=== PATIENT | male | born 1940 | race Caucasian/White ===

== ENCOUNTER 2017-02-16 14:31 | Day surgery (SDC) | payer MEDICARE ==
--- NOTE | ~2017-02-16 | OP ---
Record Of Operation [place] [id number] [facility] [place]. [address] NAME: LYNSEY CRAIG : 40 [place] [facility] [place] [id number] AGE: 76 ADM/REG DATE : 02/20/17 MR#: [id number] REPORT SERV DATE: 02/20/17 DICTATED BY: MAURILIO VINSON DATE: 02/20/17 REPORT STATUS : Draft TRANSCRIBED BY: MODL DATE: 02/20/17 DATE OF PROCEDURE: 02/20/2017 PREOPERATIVE DIAGNOSES: 1. Bilateral large incarcerated indirect right inguinal hernias. 2. Incarcerated umbilical hernia. 3. Hypertension. 4. History of nicotine dependence in the past. POSTOPERATIVE DIAGNOSES: 1. Bilateral large incarcerated indirect right inguinal hernias. 2. Incarcerated umbilical hernia. 3. Hypertension. 4. History of nicotine dependence in the past. PROCEDURES: 1. Robotic incarcerated indirect bilateral inguinal hernias with mesh. 2. Primary incarcerated umbilical hernia repair with a separate incision. ANESTHESIA: General. SURGEON: Maurilio Vinson M.D. STAFF SCIENTIST: Rick. COMPLICATIONS: None. DRAINS: None. ESTIMATED BLOOD LOSS: 20 mL. FINDINGS: 1. The patient was noted to have a large incarcerated indirect inguinal hernias with a large amount of incarcerated preperitoneal fat. 2. The patient was noted to have some inflammation of the omentum to the left lower quadrant that was reduced along with the umbilical hernia laparoscopically to allow robotic bilateral inguinal hernia repair. OPERATIVE TECHNIQUE: The patient was brought to the operating room, placed on the table in supine position. He had preoperative IV antibiotics. He had a preoperative TAP block per Anesthesia. He underwent general endotracheal anesthesia and was prepped and draped in sterile fashion and time-out was completed. Local anesthesia was instilled to the supraumbilical skin and a 15 blade knife was used to make an incision. Veress needle was inserted and water drop test was safely performed. The 12 mm trocar was inserted through the abdomen in the supraumbilical midline and the laparoscope was inserted. There was a small amount of incarcerated preperitoneal fat in the umbilical hernia. Two 5 mm lateral Record Of [place] [id number] [facility] [place]. [address] NAME: LYNSEY CRAIG : 40 [place]US : [place] [facility] [place] PAT#: [id number] AGE: 76 ADM/REG DATE : 02/20/17 MR#: [id number] REPORT SERV DATE: 02/20/17 DICTATED BY: MAURILIO VINSON DATE: 02/20/17 REPORT STATUS : Draft TRANSCRIBED BY: PEDRO DATE: 02/20/17 trocars were placed transversely parallel to the initial trocar under direct visualization. They were robotic 8 mm trocars. They were positioned with the black line for center point. The patient was then placed in Trendelenburg and the laparoscope was then used to take down the omentum that was incarcerated in the hernia sac using electrocautery. It was completely reduced and examined, it was noted to be hemostatic. There was a minimal amount of free fluid in the pelvis with some inflammation of the omentum in the left lower quadrant like the patient had some previous inflammatory process. This was taken down to allow complete hernia repair on the left. The patient was noted to have indirect inguinal hernias that were visible on both sides. The procedure then began on the right. The peritoneum was divided above the anterior iliac spine and extended toward the median umbilical ligament. Blunt dissection then ensued inferiorly from the median umbilical ligament until Newton ligament was clearly identified. Blunt dissection was used to identify the direct space, and dissection extended 2 cm below Newton ligament. The entire direct space was identified. Care was taken not involve the inferior epigastric vessels throughout the procedure. The indirect inguinal hernia sac was then identified and carefully bluntly dissected along with a large lipoma of the cord that was incarcerated. The dissection continued laterally until iliopubic tract and transversus arch were identified. The entire peritoneum was then reduced well proximal to where the vas joined the neurovascular structures of the cord, which were identified and preserved throughout the procedure. Of note, after the initial laparoscopic trocar and instruments were inserted, the ProGrip mesh which had been previously folded and irrigated with suture inside were placed on both sides for future placement. After the robot was docked, the procedure continued as described. The entire hernia and peritoneum was then reduced and there was no evidence of any other visual abnormalities. The ProGrip was then positioned just past the midline with the middle of the ProGrip at the iliopubic tract and then positioned in the pelvic floor. A small incision was made on top of the cord structures on the mesh to allow better reapproximation to the lateral structures. There was no evidence of any other defects and at this point the peritoneum was reapproximated using a running V-Loc suture without tension after the pneumoperitoneum was reduced to 7. Next, attention was turned to the left side. The peritoneum was scored and the entire hernia was repaired as described for the right. The mesh was placed as described for the right as well. The two medial portions of the mesh were overlapping. Of note, the mesh was approximately 2 cm below Newton ligament mainly on both sides and the entire myopectineal space was covered with mesh. The left peritoneum was then reapproximated with V-Loc suture without tension with the pneumoperitoneum at 4. There was no evidence of any other visual abnormalities, and all the instruments and trocars were removed. The anterior fascia was reapproximated at the superior trocar site with a running 0 Vicryl suture. The skin edges were reapproximated using interrupted subcuticular Monocryl sutures. The patient then had an infraumbilical incision made at the umbilicus and the indirect inguinal hernia sac was then identified using electrocautery, and circumferentially dissected. It was excised from the abdominal wall, flushed with the fascia. A 2 cm defect was identified. It was closed primarily without tension, and then the wound was thoroughly irrigated. The subcutaneous tissues were reapproximated using a 3-0 Vicryl suture followed by a running Monocryl stitch. Dermabond was applied. The patient was extubated and taken to the recovery room in stable condition. All sponge and needle counts were reported correct. Record Of Operation [address] [address] NAME: LYNSEY CRAIG Keely : 40 [place] [facility] [place] PAT#: [id number] AGE: 76 ADM/REG DATE : 02/20/17 MR#: [id number] REPORT SERV DATE: 02/20/17 DICTATED BY: MAURILIO VINSON DATE: 02/20/17 REPORT STATUS : Draft TRANSCRIBED BY: PEDRO DATE: 02/20/17 /PEDRO Maurilio Vinson M.D. / [id number] CC: Kala Leon M.D. Gary Smith, M.D.
[~2017-02-16 14:31] MED LIST: AMB10 PO; ASA5GR PO; BENICAR HCT1 TA1 PO; CYMBALTA60 PO; GARLIC PO; GOODY'S EX-STR1 EAC1 PO; LORTAB 5 PO; LYRICA75 PO; MULTIPLE VIT PO; NASAL MOIST0.65 % NAS; SAW PALMETTO PO; SINUS NAS; T PO; TRILIPIX135 MG PO; VIT COMPLEX PO; Z100 PO
[2017-02-16 15:11] LABS: HEMATOCRIT 43.5 % (40.0-51.0); HEMOGLOBIN 14.4 g/dL (13.6-17.8)
[2017-02-16 15:23] LABS: BUN (BLOOD UREA NITROGEN) 11 MG/DL (6-23); CALCIUM, SERUM 8.8 MG/DL (8.5-10.4); CHLORIDE, SERUM 110 MMOL/L (96-112); CO2 (CARBON DIOXIDE) 28 MMOL/L (24-34); CREATININE 0.69 MG/DL (0.70-1.30); GFR AFRICAN AMERICAN 107 ML/MIN (>=60); GFR NON AFRICAN AMERICAN 92 ML/MIN (>=60); POTASSIUM, SERUM 4.3 MMOL/L (3.5-5.3); SODIUM, SERUM 145 MMOL/L (135-148)
[2017-02-16 15:24] LABS: GLUCOSE, SERUM 91 MG/DL (60-99)
== END 2017-02-20 17:47 | disposition home or self-care (01) ==
LOC: SDC 14:31
PROVIDERS: Surgery
PROC: 0WQF4ZZ Repair Abdominal Wall, Percutaneous Endoscopic Approach (ICD-10-PCS; principal; 2017-02-20 07:00)
PROC: 0YUA4JZ Supplement Bilateral Inguinal Region with Synthetic Substitute, Percutaneous Endoscopic Approach (ICD-10-PCS; 2017-02-20 07:00)
DX: K42.0 Umbilical hernia with obstruction, without gangrene (principal); K40.00 Bilateral inguinal hernia, with obstruction, without gangrene, not specified as recurrent; I10 Essential (primary) hypertension; H91.90 Unspecified hearing loss, unspecified ear; M19.90 Unspecified osteoarthritis, unspecified site; M10.9 Gout, unspecified; Z87.891 Personal history of nicotine dependence; Z90.89 Acquired absence of other organs; Z79.82 Long term (current) use of aspirin; Z79.899 Other long term (current) drug therapy; Z98.890 Other specified postprocedural states
CPT/HCPCS: 80048; 85014; 85018; 87641; 93005; A9270-GY; C1781; J0360; J0690; J2250; J2405; J2710; J2795; J3010; J3370